=== PATIENT | female | born 1975 | race Caucasian/White ===

== ENCOUNTER 2024-03-14 12:36 | Inpatient (IN) | payer OTHER, SELFPAY ==
[2024-03-14] VITALS (8 sets, daily range): BP systolic 80–129; BP diastolic 43–91; PULSE 74–92; RESP 13–20; TEMP 35.5–37.1; O2SAT 94–100; BMI 20.6
--- NOTE | ~2024-03-14 | CT_ITS ---
EXAMINATION: CT CHEST, ABDOMEN AND PELVIS WITH CONTRAST CLINICAL INFORMATION: Question chest trauma. Abdominal pain. COMPARISON: None. TECHNIQUE: Contiguous axial thin section helical images of the chest, abdomen and pelvis were performed following the administration of oral contrast and 85 mL of intravenous Omnipaque 300. The data set was reformatted in the coronal and sagittal planes and reviewed on an independent workstation. This CT examination was performed using dose optimization techniques as appropriate, variously including the following: *Automated exposure control *Adjustment of mA and/or kV according to patient size (this includes techniques or standardized protocols for targeted exams where dose is matched to indication/reason for exam; i.e. extremities or head) *Use of iterative reconstruction technique DLP: 1346 mGy-cm. FINDINGS: LUNGS: Mild emphysematous changes. No focal airspace consolidation. No pulmonary nodule or mass. The central airways are patent. PLEURA: No pleural effusion or pneumothorax. No pleural mass or thickening. MEDIASTINUM: No cardiomegaly. No significant pericardial effusion. No thoracic aortic dilatation or dissection. The central pulmonary arteries are unremarkable. No significant mediastinal or hilar lymphadenopathy. CORONARY ARTERY CALCIFICATION: None present. CHEST WALL/AXILLA: No lymphadenopathy. LIVER, GALLBLADDER, AND BILIARY TREE: Normal size, shape, and attenuation. No focal hepatic lesion. No intra or extrahepatic biliary ductal dilatation. The gallbladder is unremarkable with no evidence of radiopaque gallstones, gallbladder wall thickening, or obvious pericholecystic inflammatory changes. PANCREAS: Unremarkable. SPLEEN: Unremarkable. ADRENAL GLANDS: Unremarkable. KIDNEYS AND URETERS: Normal size, shape, and attenuation. No hydronephrosis, hydroureter, or calculi. No perinephric stranding. BLADDER: Unremarkable. GASTROINTESTINAL TRACT: Moderate stool burden. No small or large bowel obstruction. Focal circumferential bowel wall thickening in left large and small bowel which may be due to underdistention or represent a mild focal enteritis. No pneumatosis or evidence of perforation. No additional bowel wall thickening or inflammatory change. The appendix is not seen, however, no rather quadrant inflammatory change. PERITONEAL CAVITY: No intra-abdominal free air or free fluid. No intra-abdominal mass or organized fluid collection/abscess formation. ABDOMINAL WALL: Small, fat-containing periumbilical hernia. LYMPH NODES: No significant lymphadenopathy. VASCULAR: Contrast opacifies the abdominal aorta and its branch vessels. No abdominal aortic dilatation or dissection. Scattered atherosclerotic calcifications. The IVC is unremarkable. PELVIC VISCERA: The uterus and adnexa are unremarkable. OSSEOUS STRUCTURES: No acute osseous abnormality. No lytic or blastic osseous lesion. CT/CT chest w IV con IMPRESSION: 1. Mild emphysematous changes. No focal airspace consolidation. No pulmonary nodule or mass. 2. Moderate stool burden. No small or large bowel obstruction. Focal circumferential bowel wall thickening in the left large and small bowel which may be due to underdistention or represent a mild focal enteritis. No pneumatosis or evidence of perforation. 3. No intra-abdominal mass, lymphadenopathy, or ascites. Electronically signed by: Mina Torres MD 03/14/2024 05:00 PM [facility]
--- NOTE | ~2024-03-14 | CT_ITS ---
EXAMINATION: CT CHEST, ABDOMEN AND PELVIS WITH CONTRAST CLINICAL INFORMATION: Question chest trauma. Abdominal pain. COMPARISON: None. TECHNIQUE: Contiguous axial thin section helical images of the chest, abdomen and pelvis were performed following the administration of oral contrast and 85 mL of intravenous Omnipaque 300. The data set was reformatted in the coronal and sagittal planes and reviewed on an independent workstation. This CT examination was performed using dose optimization techniques as appropriate, variously including the following: *Automated exposure control *Adjustment of mA and/or kV according to patient size (this includes techniques or standardized protocols for targeted exams where dose is matched to indication/reason for exam; i.e. extremities or head) *Use of iterative reconstruction technique DLP: 1346 mGy-cm. FINDINGS: LUNGS: Mild emphysematous changes. No focal airspace consolidation. No pulmonary nodule or mass. The central airways are patent. PLEURA: No pleural effusion or pneumothorax. No pleural mass or thickening. MEDIASTINUM: No cardiomegaly. No significant pericardial effusion. No thoracic aortic dilatation or dissection. The central pulmonary arteries are unremarkable. No significant mediastinal or hilar lymphadenopathy. CORONARY ARTERY CALCIFICATION: None present. CHEST WALL/AXILLA: No lymphadenopathy. LIVER, GALLBLADDER, AND BILIARY TREE: Normal size, shape, and attenuation. No focal hepatic lesion. No intra or extrahepatic biliary ductal dilatation. The gallbladder is unremarkable with no evidence of radiopaque gallstones, gallbladder wall thickening, or obvious pericholecystic inflammatory changes. PANCREAS: Unremarkable. SPLEEN: Unremarkable. ADRENAL GLANDS: Unremarkable. KIDNEYS AND URETERS: Normal size, shape, and attenuation. No hydronephrosis, hydroureter, or calculi. No perinephric stranding. BLADDER: Unremarkable. GASTROINTESTINAL TRACT: Moderate stool burden. No small or large bowel obstruction. Focal circumferential bowel wall thickening in left large and small bowel which may be due to underdistention or represent a mild focal enteritis. No pneumatosis or evidence of perforation. No additional bowel wall thickening or inflammatory change. The appendix is not seen, however, no rather quadrant inflammatory change. PERITONEAL CAVITY: No intra-abdominal free air or free fluid. No intra-abdominal mass or organized fluid collection/abscess formation. ABDOMINAL WALL: Small, fat-containing periumbilical hernia. LYMPH NODES: No significant lymphadenopathy. VASCULAR: Contrast opacifies the abdominal aorta and its branch vessels. No abdominal aortic dilatation or dissection. Scattered atherosclerotic calcifications. The IVC is unremarkable. PELVIC VISCERA: The uterus and adnexa are unremarkable. OSSEOUS STRUCTURES: No acute osseous abnormality. No lytic or blastic osseous lesion. CT/CT abdomen pelvis w IV con IMPRESSION: 1. Mild emphysematous changes. No focal airspace consolidation. No pulmonary nodule or mass. 2. Moderate stool burden. No small or large bowel obstruction. Focal circumferential bowel wall thickening in the left large and small bowel which may be due to underdistention or represent a mild focal enteritis. No pneumatosis or evidence of perforation. 3. No intra-abdominal mass, lymphadenopathy, or ascites. Electronically signed by: Mina Torres MD 03/14/2024 05:00 PM [facility] [place]
--- NOTE | ~2024-03-14 | CT_ITS ---
EXAMINATION: CT HEAD WITHOUT CONTRAST CLINICAL INFORMATION: Altered mental status. COMPARISON: None available. TECHNIQUE: Contiguous axial imaging was performed from the skull base to vertex without intravenous administration of contrast. This CT examination was performed using dose optimization techniques as appropriate, variously including the following: *Automated exposure control *Adjustment of mA and/or kV according to patient size (this includes techniques or standardized protocols for targeted exams where dose is matched to indication/reason for exam; i.e. extremities or head) *Use of iterative reconstruction technique DLP: 620.14 mGy-cm FINDINGS: No acute intracranial hemorrhage. No mass effect or midline shift. No parenchymal lesion. The morrow-white differentiation is maintained. No extra-axial fluid collection. The ventricles and sulci are unremarkable. The basal cisterns are patent. The calvarium is intact. The visualized paranasal sinuses and mastoid air cells are clear. CT/CT head/brain wo IV con IMPRESSION: No acute intracranial hemorrhage or mass effect. Electronically signed by: Mina Torres MD 03/14/2024 04:47 PM [facility] [place]
--- NOTE | ~2024-03-14 | XR_ITS ---
EXAMINATION: XR CHEST 2:50 PM CLINICAL INFORMATION: ams found in the snow COMPARISON: None available. TECHNIQUE: Portable frontal view of the chest was obtained. FINDINGS: No significant abnormality is noted involving the heart, lungs, mediastinum, bony thorax or soft tissues. XR/XR chest 1V IMPRESSION: Unremarkable examination. Electronically signed by: Bruce Hardin MD 03/14/2024 04:03 PM [facility] [place]
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
--- NOTE | 2024-03-14 12:53 | PC.NURSE ---
patient arrived to ED uncooperative with care. yelling, swearing, swinging at staff. security at bedside. patient then spit at another RN. would not let any care be provided to her. security took patient from room and walked her out of ED.
[2024-03-14] MEDS: diphenhydrAMINE HCL 50 MG/ML VIAL IM (13:10)
[2024-03-14] MEDS: Haloperidol Lactate 5 MG/ML VIAL 10 MG IM ×2 (13:10→13:57)
[2024-03-14] MEDS: LORazepam 2 MG/ML VIAL IM (13:10)
[2024-03-14] MEDS: 0.9 % Sodium Chloride 1,000 ML 999 ML IV ×3 (14:30→20:55)
[2024-03-14 14:53] LABS: MANUAL DIFF FLAG NO
[2024-03-14 15:00] LABS: Basophils Absolute Auto 0.1 X10*3/uL (0.0-0.2); Basophils Percent Auto 0.8 % (0-2); Eosinophils Absolute Auto 0.1 X10*3/uL (0.0-0.4); Eosinophils Percent Auto 1.4 % (0-4); Hematocrit 46.1 % (37.0-47.0); Hemoglobin 15.6 g/dl (12.0-16.0); Imm Gran Abs Auto 0.04 X10*3/uL (0.00-0.03); Imm Gran Pct Auto 0.6 % (0.0-0.4); Lymphocytes Absolute Auto 2.4 X10*3/uL (1.2-4.9); Lymphocytes Percent Auto 37.6 % (20-40); Mean Corpuscular HGB Conc 33.8 g/dl (31.0-35.0); Mean Corpuscular Hemoglobin 32.2 pg (27.0-33.0); Mean Corpuscular Volume 95.2 fL (80.0-98.0); Mean Platelet Volume 8.8 fL (9.4-12.3); Monocytes Absolute Auto 0.2 X10*3/uL (0.1-1.2); Monocytes Percent Auto 3.4 % (2-11); Neutrophils Absolute Auto 3.7 x10*3/uL (2.0-8.3); Neutrophils Percent Auto 56.2 % (45-73); Platelet Count 309 X10*3/uL (160-400); Red Blood Count 4.84 X10*6/uL (4.20-5.50); Red Cell Distribution Width 12.8 % (11.0-16.0); White Blood Count 6.5 X10*3/uL (4.8-10.8)
[2024-03-14 15:01] LABS: INTERNATIONAL NORM RATIO 0.9 (0.9-1.1)
[2024-03-14 15:10] LABS: Acetaminophen LAB < 3 mcg/mL (<30); Salicylate < 5.0 mg/dL (15-30)
[2024-03-14 15:13] LABS: Alanine Aminotransferase 41 U/L (0-31); Albumin Level 4.6 g/dL (3.5-5.0); Alkaline Phosphatase 69 U/L (39-117); Anion Gap 15 (12-20); Aspartate Amino Transferase 49 U/L (5-31); Bilirubin Total 0.4 mg/dL (0.0-1.0); Blood Urea Nitrogen 9 mg/dL (9-16); Calcium 9.3 mg/dL (8.4-10.2); Carbon Dioxide 22 mmol/L (22-29); Chloride 112 mmol/L (96-108); Creatinine Clr Calc Pharmacy 75.6; Estimated Glomerular Filt Rate > 60; Ethanol 263 mg/dL; Glucose Random 80 mg/dL (60-115); Magnesium 2.6 mg/dL (1.6-2.6); Potassium 4.7 mmol/L (3.3-5.1); Sodium 144 mmol/L (135-145); Total Protein 8.8 g/dL (6.5-8.0)
[2024-03-14] MEDS: iohexoL 350 MG/ML 100 ML INFUS..BTL 85 ML IV (15:19)
[2024-03-14 16:11] LABS: HCG Quantitative 6 mIU/mL
[2024-03-14 17:25] LABS: Appearance Urine Clear; Color Urine Yellow; Glucose Urine UA Negative (Negative); Leukocyte Esterase Urine Negative (Negative); Nitrite Urine Negative (Negative); Specific Gravity - Urine >= 1.030 (1.005-1.025); Urine Blood Negative (Negative); Urine Ketones Negative (Negative); Urine Protein Negative (Neg-Trace)
[2024-03-14 20:06] LABS: Amphetamine Screen Urine Not Detected (Not Detect); Barbiturates, Urine Not Detected (Not Detect); Benzodiazepines Screen Urine Not Detected (Not Detect); Buprenorphine Scr Not Detected (Not Detect); Cannabinoid Screen Urine POSITIVE (Not Detect); Cocaine Screen Urine POSITIVE (Not Detect); Fentanyl, urine Not Detected (Not Detect); Methadone Screen, Urine Not Detected (Not Detect); Opiate Screen Urine Not Detected (Not Detect); Oxycodone Screen Urine Not Detected (Not Detect); Phencyclidine Screen Urine Not Detected (Not Detect)
--- NOTE | 2024-03-14 20:13 | PHA.MEDREC ---
Addendum entered by Rianna Rosa [facility] 03/15/24 08:59: Levothyroxine and trazodone seemed a little high, went down to speak to patient today as patient seems to be more cooperative. Patient was able to confirm she is only on 175 mcg of the levothyroxine, she was told to stop the 100 mcg. Patient also states she is on 150 mg of trazodone daily...she does not take an extra 100 mg PRN. Addendum entered by Mando Eason [facility] 03/14/24 20:33: MED REC CHECKED BY [facility]. Based on claim history added incruse cora and proair prn but hasn't picked up since January Original Note: Pharmacy Consult ? Medication Reconciliation Pharmacy has completed the medication reconciliation. Patient is AMS and uncooperative with staff. No contacts on file. Utilized claims to confirm med list.
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
[2024-03-14 20:41] LABS: Thyroid Stimulating Hormone 24.43 uIU/mL (0.32-4.0)
[2024-03-14] MEDS: Thiamine HCL 100 MG in 0.9 % Sodium Chloride 100 ML 202 MG IV (20:55)
--- NOTE | 2024-03-14 21:07 | PC.NURSE ---
pt awake now axox4 speaking full clear sentences. ambulatory with steady gait to the bathroom and back to room. placed back on cardiac o2 and bp monitoring. warm blankets given. ivf and thiamine infusing. bp improved. call timmons within reach. pt denies si/hi, reports she drinks as much as i can everyday and +substance use. pt states she was trying to gather money to find transportation to hospital and unsure what happened. currently calm/cooperative.
[2024-03-14 21:35] LABS: Free T4 (Free Thyroxine) 0.67 ng/dL (0.71-1.85)
[2024-03-14] MEDS: Enoxaparin Sodium 40 MG/0.4 ML SYRINGE SUBCUT (22:27)
[2024-03-14] MEDS: Nicotine 21 MG PATCH.TD24 TRANSDERMA (22:27)
[2024-03-14] MEDS: Dextrose 5 % and 0.9 % NaCl 1,000 ML 125 ML IVCONT (22:28)
--- NOTE | 2024-03-15 04:19 | MHC.EDTECH ---
Addendum entered by Emilia Timmons 03/15/24 04:22: Update: Belongings located in [place] Original Note: No belongings at bedside or notes in chart as to where belongings are.
[2024-03-15 06:19] LABS: MANUAL DIFF FLAG NO
[2024-03-15 06:21] LABS: Basophils Percent Auto 0.5 % (0-2); Eosinophils Absolute Auto 0.2 X10*3/uL (0.0-0.4); Eosinophils Percent Auto 1.9 % (0-4); Hematocrit 36.5 % (37.0-47.0); Hemoglobin 12.4 g/dl (12.0-16.0); Imm Gran Abs Auto 0.04 X10*3/uL (0.00-0.03); Imm Gran Pct Auto 0.5 % (0.0-0.4); Lymphocytes Absolute Auto 2.7 X10*3/uL (1.2-4.9); Lymphocytes Percent Auto 33.5 % (20-40); Mean Corpuscular Hemoglobin 32.3 pg (27.0-33.0); Mean Corpuscular Volume 95.1 fL (80.0-98.0); Mean Platelet Volume 8.6 fL (9.4-12.3); Monocytes Absolute Auto 0.7 X10*3/uL (0.1-1.2); Monocytes Percent Auto 8.2 % (2-11); Neutrophils Absolute Auto 4.5 x10*3/uL (2.0-8.3); Neutrophils Percent Auto 55.4 % (45-73); Platelet Count 257 X10*3/uL (160-400); Red Blood Count 3.84 X10*6/uL (4.20-5.50); Red Cell Distribution Width 13.2 % (11.0-16.0); White Blood Count 8.1 X10*3/uL (4.8-10.8)
[2024-03-15 06:41] LABS: Alanine Aminotransferase 28 U/L (0-31); Albumin Level 3.4 g/dL (3.5-5.0); Alkaline Phosphatase 56 U/L (39-117); Anion Gap 10 (12-20); Aspartate Amino Transferase 42 U/L (5-31); Bilirubin Total 0.8 mg/dL (0.0-1.0); Blood Urea Nitrogen 9 mg/dL (9-16); Calcium 8.3 mg/dL (8.4-10.2); Carbon Dioxide 24 mmol/L (22-29); Chloride 117 mmol/L (96-108); Creatinine Clr Calc Pharmacy 75.6; Estimated Glomerular Filt Rate > 60; Glucose Random 127 mg/dL (60-115); Sodium 147 mmol/L (135-145)
[2024-03-15] MEDS: Dextrose 5 % and 0.9 % NaCl 1,000 ML 125 ML IVCONT ×3 (07:08→21:41)
[2024-03-15 08:23] VITALS: BP 155/112; PULSE 74; RESP 20; TEMP 37; O2SAT 99
--- NOTE | 2024-03-15 08:43 | HO.PM.IMPN ---
Subjective Subjective Date of Service: 03/15/24 Interval History: f/u altered mental status rhabdomylosis Physical Exam Vital Signs: Vital Signs: Last Vital Signs Temp 98.6 F 03/15/24 08:23 Pulse 74 03/15/24 08:23 Resp 20 03/15/24 08:23 BP 155/112 H 03/15/24 08:23 Pulse Ox 99 03/15/24 08:23 O2 Del Method Room Air 03/15/24 08:23 BMI result Body Mass Index 20.6 General: AO X 3, no acute distress Resp: CTA bilateral CVS: S1,S2,RRR GI: +BS, NT, no distention Skin: No rash Neuro: motor grossly intact Psych: appropriate affect Objective Data Active Medications Albuterol Sulfate (Albuterol Sulfate 90 Mcg 8 Gm Inhaler) 2 puff INHALE Q4H PRN PRN Reason: RESPIRATORY DISTRESS Baclofen (Baclofen 10 Mg Tablet) 10 mg PO TID [facility] Buspirone HCl (Buspirone Hcl 10 Mg Tablet) 20 mg PO TID [facility] Enoxaparin Sodium (Enoxaparin Sodium 40 Mg/0.4 Ml Syringe) 40 mg SUBCUT Q24H [facility] Last Admin: 03/14/24 22:27 Dose: 40 mg Documented By: FABIANO Gabapentin (Gabapentin 600 Mg Tablet) 900 mg PO TID [facility] Hydroxyzine HCl (Hydroxyzine Hcl 50 Mg Tablet) 50 mg PO QID [facility] Dextrose/Sodium Chloride (D5ns) 1,000 mls @ 125 mls/hr IVCONT .Q8H [facility] Last Admin: 03/15/24 07:08 Dose: 125 mls/hr Documented By: AZAR Thiamine HCl 100 mg/ Sodium (Chloride) 101 mls @ 202 mls/hr IV DAILY [facility] Levothyroxine Sodium (Levothyroxine Sodium 100 Mcg Tablet) 100 mcg PO DAILY [facility] Levothyroxine Sodium (Levothyroxine Sodium 175 Mcg Tablet) 175 mcg PO DAILY [facility] Lorazepam (Lorazepam 2 Mg/Ml Vial) 2 mg IVPUSH Q4H PRN PRN Reason: Alcohol Withdrawal Sodium Chloride (0.9 % Sodium Chloride Flush 3 Ml Syringe) 3 ml IVFLUSH QSHIFT [facility] Last Admin: 03/15/24 08:35 Dose: Not Given Documented By: KATT Non-Admin Reason: IV Running Trazodone HCl (Trazodone Hcl 100 Mg Tablet) 100 mg PO BEDTIME PRN PRN Reason: insomnia Trazodone HCl (Trazodone Hcl 50 Mg Tablet) 150 mg PO BEDTIME [facility] Labs 03/15/24 06:12 03/15/24 06:12 Labs: Laboratory Results - last 24 hr 03/14/24 03/14/24 03/14/24 14:46 17:18 18:52 MCV 95.2 MCH 32.2 MCHC 33.8 RDW 12.8 Plt Count 309 MPV 8.8 L Immature Gran % (Auto) 0.6 H Neut % (Auto) 56.2 Lymph % (Auto) 37.6 [place] % (Auto) 3.4 Eos % (Auto) 1.4 Baso % (Auto) 0.8 Lymph # (Auto) 2.4 [place] # (Auto) 0.2 Eos # (Auto) 0.1 Baso # (Auto) 0.1 Abs Immat Gran (auto) 0.04 H Absolute Neuts (auto) 3.7 Absolute Nucleated RBC 0.000 Nucleated RBC % (auto) 0.0 PT 11.0 INR 0.9 Anion Gap 15 Estim Creat Clear Calc 75.6 Estimated GFR > 60 Random Glucose 80 Calcium 9.3 Magnesium 2.6 Total Bilirubin 0.4 AST 49 H ALT 41 H Alkaline Phosphatase 69 Total Creatine Kinase 708 H 1168 H Total Protein 8.8 H Albumin 4.6 TSH 24.43 H Free T4 0.67 L Beta HCG, Quant 6 Urine Color Yellow Urine Appearance Clear Urine pH 6.0 Ur Specific [place] >= 1.030 H Urine Protein Negative Urine Glucose (UA) Negative Urine Ketones Negative Urine Blood Negative Urine Nitrite Negative Ur Leukocyte Esterase Negative Salicylates < 5.0 L Urine Opiates Screen Not Detected Ur Buprenorphine Scrn Not Detected Ur Oxycodone Screen Not Detected Urine Methadone Screen Not Detected Urine Fentanyl Screen Not Detected Acetaminophen < 3 Ur Barbiturates Screen Not Detected Ur Phencyclidine Scrn Not Detected Ur Amphetamines Screen Not Detected U Benzodiazepines Scrn Not Detected Urine Cocaine Screen POSITIVE H U Marijuana (THC) Screen POSITIVE H Ethyl Alcohol 263 03/14/24 03/15/24 18:52 06:12 MCV 95.1 MCH 32.3 MCHC 34.0 RDW 13.2 Plt Count 257 MPV 8.6 L Immature Gran % (Auto) 0.5 H Neut % (Auto) 55.4 Lymph % (Auto) 33.5 [place] % (Auto) 8.2 Eos % (Auto) 1.9 Baso % (Auto) 0.5 Lymph # (Auto) 2.7 [place] # (Auto) 0.7 Eos # (Auto) 0.2 Baso # (Auto) 0.0 Abs Immat Gran (auto) 0.04 H Absolute Neuts (auto) 4.5 Absolute Nucleated RBC 0.000 Nucleated RBC % (auto) 0.0 PT INR Anion Gap 10 L Estim Creat Clear Calc 75.6 Estimated GFR > 60 Random Glucose 127 H Calcium 8.3 L D Magnesium 2.0 Total Bilirubin 0.8 AST 42 H ALT 28 Alkaline Phosphatase 56 Total Creatine Kinase 1162 H Total Protein 6.0 L Albumin 3.4 L TSH Free T4 Beta HCG, Quant Urine Color Urine Appearance Urine pH Ur Specific [place] Urine Protein Urine Glucose (UA) Urine Ketones Urine Blood Urine Nitrite Ur Leukocyte Esterase Salicylates Urine Opiates Screen Ur Buprenorphine Scrn Ur Oxycodone Screen Urine Methadone Screen Urine Fentanyl Screen Acetaminophen Ur Barbiturates Screen Ur Phencyclidine Scrn Ur Amphetamines Screen U Benzodiazepines Scrn Urine Cocaine Screen U Marijuana (THC) Screen Ethyl Alcohol Assessment and Plan (1) Agitation: Status: Acute (2) Polysubstance abuse: Status: Acute (3) Alcohol intoxication: Status: Acute Plan 48-year-old woman was admitted with the following conditions: Rhabdomyolysis relatated to hypothermia -monitor CPK -IVF Acute encephalopathy, likely multifactorial due to alcohol intoxication and multiple RECRUITING ASSOCIATE depressant medications administered in the ED and cocaine use. -addiction med consult Hypotension and hypothermia, resolved, likely due to exposure to cold. resolved, BP is now high Hypernatremia--mild, monitor with ivf Overt hypothyroidism. A free T4 is low, ? non-compliance -resume home levothyroxine Elevated transaminases secondary to alcohol use. -Monitor Alcohol abuse. CIWA protocol and thiamine are in place. The patient will need to abstain from alcohol. Ativan is available as needed. Given the positive test, folic acid and multivitamins will be initiated when able. Cocaine and alcohol abuse. An addiction medicine consult has been ordered. Positive test. B-hcg of 6, this is equivocal, repeat level, if truly positive then supply and distribution manager consult DVT prophylaxis includes Lovenox. Code status: Full. Quality Stroke Does the patient have a stroke diagnosis?: No VTE Prior VTE?: No VTE Risk Level:: Medical - moderate - high VTE Device Contraindication: Treatment Not Indicated VTE Drug Contraindication: N/A - Med Ordered
[2024-03-15] MEDS: hydrOXYzine HCL 50 MG TABLET PO ×4 (09:20→23:16)
[2024-03-15] MEDS: Thiamine HCL 100 MG in 0.9 % Sodium Chloride 100 ML 202 MG IV (09:20)
[2024-03-15 09:31] LABS: Beta-Hydroxybutyrate 0.06 mmol/L (0.02-0.27)
[2024-03-15] MEDS: Levothyroxine Sodium 175 MCG TABLET PO (09:37)
--- NOTE | 2024-03-15 09:43 | PC.NURSE ---
assumed care of patient at 7am , patient is awake and alert, cooperative and polite. patient VsS, inpatient provider aware of bp. patient order changed from npo to regular diet, patient given breakfast tray. patient ambulatory to the bathroom. patient medicated per JUN, has D5NS 125ml/hr running. patient has elopement band on ankle. patient CIWA 3.
[2024-03-15 09:48] LABS: HCG Quantitative 5 mIU/mL
--- NOTE | 2024-03-15 11:12 | MHC.RECOVRN ---
Attempted to meet with pt in ED3 after receiving Addiction Medicine consult for cocaine and alcohol use. Pt laying in bed, asleep, wakes to voice and falls back asleep quickly. Not able to engage in interview at this time. Resources left at bedside. Will continue to follow.
[2024-03-15 13:16] VITALS: BP 155/106; PULSE 75; RESP 16; TEMP 36.7; O2SAT 100
--- NOTE | 2024-03-15 13:32 | MHC.RECOVRN ---
Attempted to meet with Sandra for DALE assessment, however once this nurse started asking questions relating to substance use, patient hesitated and stated I really don't feel like answering any of these questions. I drink as much as I want, whenever I want and that's it. I don't want to talk about it more.
--- NOTE | 2024-03-15 13:51 | PC.NURSE ---
patient sitting up eating lunch, ambulated to bathroom with steady gait.
[2024-03-15 16:09] VITALS: BP 141/94; PULSE 67; RESP 16; TEMP 36.3; O2SAT 96
[2024-03-15 20:00] VITALS: BP 157/95; PULSE 66; RESP 16; TEMP 36.2; O2SAT 99; BMI 20.2
[2024-03-15] MEDS: traZODone HCL 50 MG TABLET 150 MG PO (23:15)
[2024-03-15 23:32] VITALS: BP 147/101; PULSE 72; RESP 20; TEMP 36.4; O2SAT 99
[2024-03-16 00:39] VITALS: BP 132/92
[2024-03-16] MEDS: LORazepam 2 MG/ML VIAL IVPUSH ×2 (00:40→10:07)
[2024-03-16 04:00] VITALS: BP 138/90; PULSE 71; RESP 20; TEMP 36.1; O2SAT 100
[2024-03-16] MEDS: Dextrose 5 % and 0.9 % NaCl 1,000 ML 125 ML IVCONT ×2 (04:59→12:37)
[2024-03-16] MEDS: Levothyroxine Sodium 175 MCG TABLET PO (07:42)
[2024-03-16 08:00] VITALS: BP 124/79; PULSE 56; RESP 12; TEMP 36.7; O2SAT 98
[2024-03-16 08:25] LABS: Anion Gap 11 (12-20); Blood Urea Nitrogen 7 mg/dL (9-16); Calcium 8.3 mg/dL (8.4-10.2); Carbon Dioxide 21 mmol/L (22-29); Chloride 112 mmol/L (96-108); Creatinine Clr Calc Pharmacy 75.3; Estimated Glomerular Filt Rate > 60; Glucose Random 92 mg/dL (60-115); Potassium 3.8 mmol/L (3.3-5.1); Sodium 140 mmol/L (135-145)
[2024-03-16 08:29] LABS: HCG Quantitative 5 mIU/mL
--- NOTE | 2024-03-16 08:57 | MHC.CM.PN ---
PT, WHO WAS MINIMALLY ENGAGED, REPORTS SHE IS HOMELESS SHE DENIES BEING CONNECTED TO SERVICES HOWEVER STATES SHE IS ACTIVE WITH DR DOC WEEKS (PSYCHIATRIST) PATIENT ALSO DECLINED TO SPEAK TO RECOVERY TEAM, HOWEVER STATES SHE WANTS TO GO TO A PROGRAM CM WILL ASK RECOVERY TEAM TO DROP OFF A LIST OF PROGRAMS, PT STATES SHE WILL CALL WHEN ASKED ABOUT PRIMARY CARE, PT STATES HER ONLY DOCTOR IS DOC WEEKS [facility] TBD PROGRAM VS PRISON VS STREET PT WILL NEED ASSISTANCE WITH TRANSPORTATION
[2024-03-16] MEDS: 0.9 % Sodium Chloride Flush 3 ML SYRINGE IVFLUSH ×2 (09:04→22:08)
[2024-03-16] MEDS: hydrOXYzine HCL 50 MG TABLET PO (09:04)
[2024-03-16] MEDS: Thiamine HCL 100 MG in 0.9 % Sodium Chloride 100 ML 202 MG IV (09:07)
--- NOTE | 2024-03-16 11:57 | HO.PM.IMPN ---
Subjective Subjective Date of Service: 03/16/24 Interval History: f/u altered mental status rhabdomylosis, no confusion, repeat hcg level is unchanged Physical Exam Vital Signs: Vital Signs: Last Vital Signs Temp 98.1 F 03/16/24 08:00 Pulse 56 03/16/24 08:00 Resp 12 03/16/24 08:00 BP 124/79 03/16/24 08:00 Pulse Ox 98 03/16/24 08:00 O2 Del Method Room Air 03/16/24 08:00 BMI result Body Mass Index 20.2 General: AO X 3, no acute distress Resp: CTA bilateral CVS: S1,S2,RRR GI: +BS, NT, no distention Skin: No rash Neuro: motor grossly intact Psych: appropriate affect Objective Data Active Medications Albuterol Sulfate (Albuterol Sulfate 90 Mcg 8 Gm Inhaler) 2 puff INHALE Q4H PRN PRN Reason: RESPIRATORY DISTRESS Baclofen (Baclofen 10 Mg Tablet) 10 mg PO TID [facility] Last Admin: 03/15/24 09:26 Dose: Not Given Documented By: KATT Non-Admin Reason: Physician Held Med Buspirone HCl (Buspirone Hcl 10 Mg Tablet) 20 mg PO TID [facility] Last Admin: 03/15/24 09:26 Dose: Not Given Documented By: KATT Non-Admin Reason: Physician Held Med Enoxaparin Sodium (Enoxaparin Sodium 40 Mg/0.4 Ml Syringe) 40 mg SUBCUT Q24H [facility] Last Admin: 03/15/24 23:00 Dose: Not Given Documented By: WENDY Non-Admin Reason: Patient Refused Gabapentin (Gabapentin 600 Mg Tablet) 900 mg PO TID [facility] Last Admin: 03/15/24 09:26 Dose: Not Given Documented By: KATT Non-Admin Reason: Physician Held Med Hydroxyzine HCl (Hydroxyzine Hcl 50 Mg Tablet) 50 mg PO QID [facility] Last Admin: 03/16/24 09:04 Dose: 50 mg Documented By: SILVIO Dextrose/Sodium Chloride (D5ns) 1,000 mls @ 125 mls/hr IVCONT .Q8H [facility] Last Admin: 03/16/24 04:59 Dose: 125 mls/hr Documented By: WENDY Thiamine HCl 100 mg/ Sodium (Chloride) 101 mls @ 202 mls/hr IV DAILY [facility] Last Infusion: 03/16/24 10:15 Dose: Infused Documented By: SILVIO Levothyroxine Sodium (Levothyroxine Sodium 175 Mcg Tablet) 175 mcg PO DAILY@0600 [facility] Last Admin: 03/16/24 07:42 Dose: 175 mcg Documented By: WENDY Lorazepam (Lorazepam 2 Mg/Ml Vial) 2 mg IVPUSH Q4H PRN PRN Reason: Alcohol Withdrawal Last Admin: 03/16/24 10:07 Dose: 2 mg Documented By: SILVIO Sodium Chloride (0.9 % Sodium Chloride Flush 3 Ml Syringe) 3 ml IVFLUSH QSHIFT [facility] Last Admin: 03/16/24 09:04 Dose: 3 ml Documented By: SILVIO Trazodone HCl (Trazodone Hcl 50 Mg Tablet) 150 mg PO BEDTIME [facility] Last Admin: 03/15/24 23:15 Dose: 150 mg Documented By: WENDY Labs 03/15/24 06:12 03/16/24 07:37 Labs: Laboratory Results - last 24 hr 03/16/24 07:37 Anion Gap 11 L Estim Creat Clear Calc 75.3 Estimated GFR > 60 Random Glucose 92 Calcium 8.3 L Beta HCG, Quant 5 Assessment and Plan (1) Agitation: Status: Acute (2) Polysubstance abuse: Status: Acute (3) Alcohol intoxication: Status: Acute Plan 48-year-old woman was admitted with the following conditions: Rhabdomyolysis relatated to hypothermia -monitor CPK -IVF Acute encephalopathy, likely multifactorial due to alcohol intoxication and multiple INDUSTRIAL MAINTENANCE MECHANIC depressant medications administered in the ED and cocaine use. -addiction med consult. Encephalopathy resolved Hypotension and hypothermia, resolved, likely due to exposure to cold. resolved, BP is now normal Hypernatremia--mild, resolved Overt hypothyroidism. A free T4 is low, ? non-compliance -continue home levothyroxine Elevated transaminases secondary to alcohol use. -Monitor Alcohol abuse. CIWA protocol and thiamine are in place. The patient will need to abstain from alcohol. Ativan is available as needed. Given the positive test, folic acid and multivitamins will be initiated when able. Cocaine and alcohol abuse. An addiction medicine consult has been ordered. Positive test. B-hcg of 6, repeat 5 x 2, this is equivocal. Check LH and FSH, hold US and discuss with ONCOLOGY PATIENT NAVIGATOR if rising DVT prophylaxis includes Lovenox. Code status: Full. Quality Stroke Does the patient have a stroke diagnosis?: No VTE Prior VTE?: No VTE Risk Level:: Medical - moderate - high VTE Device Contraindication: Treatment Not Indicated VTE Drug Contraindication: N/A - Med Ordered
[2024-03-16 12:00] VITALS: BP 124/84; PULSE 76; RESP 16; TEMP 36.4; O2SAT 96
[2024-03-16 14:04] LABS: MANUAL DIFF FLAG NO
[2024-03-16 14:07] LABS: Basophils Percent Auto 0.3 % (0-2); Eosinophils Absolute Auto 0.1 X10*3/uL (0.0-0.4); Eosinophils Percent Auto 1.3 % (0-4); Hematocrit 36.5 % (37.0-47.0); Hemoglobin 12.4 g/dl (12.0-16.0); Imm Gran Abs Auto 0.01 X10*3/uL (0.00-0.03); Imm Gran Pct Auto 0.2 % (0.0-0.4); Lymphocytes Absolute Auto 1.5 X10*3/uL (1.2-4.9); Lymphocytes Percent Auto 23.3 % (20-40); Mean Corpuscular Hemoglobin 32.5 pg (27.0-33.0); Mean Corpuscular Volume 95.5 fL (80.0-98.0); Mean Platelet Volume 9.4 fL (9.4-12.3); Monocytes Absolute Auto 0.5 X10*3/uL (0.1-1.2); Monocytes Percent Auto 7.7 % (2-11); Neutrophils Absolute Auto 4.3 x10*3/uL (2.0-8.3); Neutrophils Percent Auto 67.2 % (45-73); Platelet Count 248 X10*3/uL (160-400); Red Blood Count 3.82 X10*6/uL (4.20-5.50); White Blood Count 6.4 X10*3/uL (4.8-10.8)
[2024-03-16 15:32] VITALS: BP 143/91; PULSE 76; RESP 12; TEMP 36.8; O2SAT 99
[2024-03-16 19:15] VITALS: BP 134/87; PULSE 76; RESP 16; TEMP 37; O2SAT 97
[2024-03-17] VITALS: BP 134/95; PULSE 64; RESP 16; TEMP 36.4; O2SAT 100
[2024-03-17 03:23] VITALS: BP 146/93; PULSE 50; RESP 16; TEMP 36.4; O2SAT 100
[2024-03-17] MEDS: Levothyroxine Sodium 175 MCG TABLET PO (05:26)
[2024-03-17] MEDS: LORazepam 2 MG/ML VIAL 1 MG IVPUSH (05:29)
[2024-03-17 07:14] VITALS: BP 116/76; PULSE 78; RESP 20; TEMP 36.8; O2SAT 100
[2024-03-17] MEDS: Thiamine HCL 100 MG in 0.9 % Sodium Chloride 100 ML 202 MG IV (08:18)
[2024-03-17] MEDS: 0.9 % Sodium Chloride Flush 3 ML SYRINGE IVFLUSH (08:18)
[2024-03-17 09:03] LABS: Anion Gap 7 (12-20); Blood Urea Nitrogen 6 mg/dL (9-16); Calcium 8.5 mg/dL (8.4-10.2); Carbon Dioxide 28 mmol/L (22-29); Chloride 109 mmol/L (96-108); Creatinine Clr Calc Pharmacy 78.5; Estimated Glomerular Filt Rate > 60; Glucose Random 77 mg/dL (60-115); Potassium 4.1 mmol/L (3.3-5.1); Sodium 140 mmol/L (135-145)
[2024-03-17 09:05] LABS: HCG Quantitative 6 mIU/mL
[2024-03-17 11:05] VITALS: BP 135/86; PULSE 85; RESP 18; TEMP 36.9; O2SAT 98
--- NOTE | 2024-03-17 11:40 | PM.DS ---
DS: Providers Provider Date of Service: 03/17/24 Date of admission: 03/14/24 20:15 Date of discharge: 03/17/24 Primary care physician: Unknown Physician Consults: 03/14/24 21:00 Addiction Medicine Routine Consulting Provider: Addiction Covering Reason for consultation: Cocaine and alcohol abuse DS: Diagnosis Discharge Diagnosis (1) Agitation: Status: Resolved (2) Polysubstance abuse: Status: Acute (3) Alcohol intoxication: Status: Resolved DS: Summary Hospital Course Hospital Course: admission hpi Chief Complaint: Altered mental status Patricia Jimenes is a 48 years old woman with past medical significant for hypothyroidism was brought to the emergency department via EMS after she was [place] and altered. According to ED notes the patient was combative and attacking the staff members. HPI could not get obtain directly from the patient as she seems to be intoxicated. In the ED, she was initially found to have hypotension and hypothermia. Vital signs are stable. Blood workup was remarkable for elevated total CK (last 1162) and elevated transaminases. There are no electrolyte imbalances and renal function is normal. TSH markedly elevated at 24.43. test is 6. Head, abdomen, pelvis and chest CT scans are unremarkable. CXR is negative. ED tx: Haldol 20 mg IM, Ativan 2 mg IM, Benadryl 50 mg IM, NS 2 L bolus, Zofran 4 mg IV Hospital course: The patient presented with altered mental status, intoxicated with alcohol, and a urine drug screen positive for cocaine and marijuana. She was extremely agitated in the ED and required chemical restraint with Ativan, Haldol, and Benadryl. Lab work showed an elevated CPK, initially 708, then 1168, and now 715, raising concern for early rhabdomyolysis. B-HCG was 6, raising suspicion for , although the patient denied the possibility. Serial B-HCG levels over four days were 6, 5, 5, and 6. LH and FSH levels have been sent to confirm that this is not a . These findings were discussed with DOPE WEIGH OPERATOR, who advised follow-up in the outpatient DOPE WEIGH OPERATOR office. At this time, the patient's altered mental status and encephalopathy have resolved. She was seen by the recovery team and advised to abstain from substance use. She was urged to follow up with DOPE WEIGH OPERATOR and to take her medications as prescribed, particularly levothyroxine for hypothyroidism. She admitted to not taking it regularly, which correlates with her elevated TSH level of 24. Time Attestation Discharge Coordination Time (in mins): 40 Quality: Safe Use of Opioids Does Pt have an Active Cancer Diagnosis on the Problem List?: No Quality: Stroke Does the patient have a stroke diagnosis?: No Physical Exam Vital Signs: Vital Signs: Last Vital Signs Temp 98.4 F 03/17/24 11:05 Pulse 85 03/17/24 11:05 Resp 18 03/17/24 11:05 BP 135/86 03/17/24 11:05 Pulse Ox 98 03/17/24 11:05 O2 Del Method Room Air 03/17/24 11:05 BMI result Body Mass Index 20.2 General: AO X 3, no acute distress Resp: CTA bilateral CVS: S1,S2,RRR GI: +BS, NT, no distention Skin: No rash Neuro: motor grossly intact Psych: appropriate affect DS: Data Data Completed and Pending Labs on day of discharge: Laboratory Results - last 24 hr 03/16/24 03/16/24 03/17/24 12:25 12:35 07:40 WBC 6.4 RBC 3.82 L Hgb 12.4 Hct 36.5 L MCV 95.5 MCH 32.5 MCHC 34.0 RDW 13.0 Plt Count 248 MPV 9.4 Immature Gran % (Auto) 0.2 Neut % (Auto) 67.2 Lymph % (Auto) 23.3 Mora % (Auto) 7.7 Eos % (Auto) 1.3 Baso % (Auto) 0.3 Lymph # (Auto) 1.5 Mora # (Auto) 0.5 Eos # (Auto) 0.1 Baso # (Auto) 0.0 Abs Immat Gran (auto) 0.01 Absolute Neuts (auto) 4.3 Absolute Nucleated RBC 0.000 Nucleated RBC % (auto) 0.0 Hold Purple Top SEE NOTE Sodium 140 Potassium 4.1 Chloride 109 H Carbon Dioxide 28 Anion Gap 7 L BUN 6 L Creatinine 0.70 Estim Creat Clear Calc 78.5 Estimated GFR > 60 Random Glucose 77 Calcium 8.5 Total Creatine Kinase 715 H Beta HCG, Quant 6 Discharge Plan Discharge Anticipated Discharge Date/Time: 03/17/24 11:39 Patient Disposition: Home, Self-Care Discharge Diagnosis: alcohol intoxications, rhabdomyolysis, positive Referrals: Physician,Unknown J [Primary Care Provider] - 1 Week Felipe Gutierrez MD [Physician] - 1 Week (call for appointment to review labs) Discharge Medications: Continued levothyroxine 175 mcg tablet 175 mcg PO DAILY Rx Instructions: TOTAL DOSE 175MG gabapentin 600 mg tablet 900 mg PO TID hydroxyzine pamoate 50 mg capsule 50 mg PO QID trazodone 150 mg tablet 150 mg PO BEDTIME baclofen 10 mg tablet 10 mg PO TID buspirone 10 mg tablet 20 mg PO TID albuterol sulfate [Ventolin HFA] 90 mcg/actuation HFA aerosol inhaler 2 puff inhalation Q4H PRN (Reason: Respiratory Distress) Discharge Orders: Discharge Order (Routine); Ordered 03/17/24 Ordered By: Hasmukh Weber Diet: Advance to usual diet Activity on Discharge: As tolerated Stand Alone Forms: Patient Portal Discharge page Print Language: Togolese Care Plan Goals: recovery from alcohol intoxiciation, rhabdomylosis, substance use disorder Health Concerns: substance use diosorder alcohol use disorder Plan of Treatment: resume your medication as usual Follow up with DOPE WEIGH OPERATOR (Dr. Gutierrez's) regarding the positive test, though it remains uncertain if this is a true positive. Confirmatory tests are pending. Assessment: see above Discharge Date/Time: 03/17/24 14:18
--- NOTE | 2024-03-17 13:04 | MHC.CM.PN ---
Pt is being medically cleared for discharge today, self-care to the streets. This CM called [facility], the living room, the [facility], [facility], and [facility] to inquire about an available fci bed. No available fci beds at this time. This CM met with pt to discuss her discharge and she stated you don't need to find me a place to go, I will find somewhere to go once I leave.
--- NOTE | 2024-03-17 15:52 | P.CDIM_ITS ---
PROVIDER RESPONSE TEXT: To clarify, the appropriate diagnosis supported by the clinical indicators: Metabolic QUERY TEXT: PHYSICIAN'S DOCUMENTATION REQUEST Date of Query: 03/17/2024 08:14 AM EST Patient Name: Patricia Jimenes Admit Date: 03/15/2024 Dear Hasmukh Weber MD, A review of the medical record indicates additional documentation may be needed. Please review below and update the documentation accordingly. Clinical Indicators: Progress notes within the written Plan: Acute encephalopathy likely multifactorial. Alcohol intoxication, multiple TEACHING AIDE depressant meds given in Ed and cocaine use. Altered mental status. Based on the above, please further specify, in the Progress Notes, the known or suspected type of the documented encephalopathy: Metabolic Toxic Toxic metabolic Alcoholic Other (explain) Clinically unable to determine (explain) Thank you, Trang Richter, CCS, CDIS Use of terms such as suspected, likely, concern for, or probable (associated with a specific diagnosi s that is being evaluated, monitored, or treated as if it exists) are acceptable and can be coded in the inpatient se tting, when documented at the time of discharge. Please use your independent medical judgment in providing your response. THIS QUERY IS PART OF THE PERMANENT MEDICAL RECORD
[2024-03-18 12:59] LABS: Follicle Stimulating Hormone 95.6 mIU/mL; Lutenizing Hormone 43.8 mIU/mL
== END 2024-03-17 14:18 | disposition home or self-care (01) | DRG 351 ==
LOC: HO.ED 19:32 → HO.EDOVER 20:28 → HO.IMC 03-15 17:51
PROVIDERS: Physician Assistant; Admitting Provider Internal Medicine; Emergency Provider Emergency Medicine Emergency Medical Services; Visit Provider Internal Medicine
DX: M62.82 Rhabdomyolysis (principal); G93.41 Metabolic encephalopathy; T68.XXXA Hypothermia, initial encounter; E87.0 Hyperosmolality and hypernatremia; F17.210 Nicotine dependence, cigarettes, uncomplicated; Z91.148 Patient's other noncompliance with medication regimen for other reason; F19.10 Other psychoactive substance abuse, uncomplicated; X31.XXXA Exposure to excessive natural cold, initial encounter; Z71.6 Tobacco abuse counseling; Y90.8 Blood alcohol level of 240 mg/100 ml or more; E03.9 Hypothyroidism, unspecified; F14.10 Cocaine abuse, uncomplicated; F10.229 Alcohol dependence with intoxication, unspecified; Z79.890 Hormone replacement therapy; Z79.899 Other long term (current) drug therapy
CPT/HCPCS: 36415; 70450; 71045; 71260; 74177; 80048; 80053; 80143; 80179; 80307; 81003; 82010; 82550; 83001; 83002; 83735; 84439; 84443; 84702; 85025; 85610; 99285; J1200; J1630; J1650; J2060; J3411; Q9967; S9485

== ENCOUNTER → 2024-03-14 20:15 | Outpatient (BNV) | payer OTHER, SELFPAY | PROVIDERS: Admitting Provider Internal Medicine; Emergency Provider Emergency Medicine Emergency Medical Services; Visit Provider Internal Medicine | DX: R45.1 Restlessness and agitation (principal); F19.10 Other psychoactive substance abuse, uncomplicated; F10.929 Alcohol use, unspecified with intoxication, unspecified | CPT/HCPCS: 99223; 99232 ==

== ENCOUNTER 2025-03-01 12:47 | Emergency (ER) | payer MEDICAID, SELFPAY ==
--- NOTE | 2025-03-01 14:21 | ED_ITS ---
HPI - General Adult General Chief complaint: Skin/Abscess/Foreign Body Stated complaint: infections on multiple sites Time Seen by Provider: 03/01/25 15:47 History of Present Illness ED Provider: Hema Licea MD HPI narrative: Date & Time: 2025-03-01 Patient Name: Patricia : MRN: Author / Clinician: Hema Licea MD (Emergency Medicine) Chief Complaint Painful, red lesion on the left hand present for approximately eight months. History of Present Illness 28-year-old female (Patricia) presents with a red, inflamed area on the dorsal aspect of her left hand that began about eight months ago. She reports intermittent manipulation/picking of the lesion, with recent expression of a small amount of pus. The area is painful and feels hot to her. She denies any inciting injury or injections to the area. No associated fever, chills, weight loss, night sweats, sore throat, cough, chest pain, or proximal streaking erythema up the arm. Similar smaller lesions are noted on her legs. She reports visiting a friend's house who injects needles, but denies injecting herself. Seen at an urgent care clinic earlier today where IV antibiotics were recommended; she was referred to the ED by urgent care (with assistance from her mother). She states prior blood work was obtained at urgent care; results pending review. Review of Systems - General: Denies fever, chills, weight loss, night sweats. - Skin: Painful red lesion on left hand; similar lesions on legs. - HEENT: Denies sore throat. - Respiratory: Denies cough. - Cardiovascular: Denies chest pain. - Extremities: Denies spreading redness up arm. Past Medical History Presumed COPD. Status post thyroidectomy ? currently without thyroid hormone replacement (has not refilled levothyroxine for several months; previous doses 175 mcg then 100 mcg). Medications None currently taken (levothyroxine previously, now lapsed). = Physical Exam: - Skin/Extremity: Dorsal left hand with a single erythematous, indurated lesion; patient reports tenderness to touch. No visible streaking proximally. Patient able to fully open and close left hand. Ring removed for comfort. Comparable photographs obtained for record. Emergency Department Course Photographs of the hand lesion obtained. Prior urgent-care laboratory studies requested for review (results not yet available). Discussed need for antibiotic therapy; plan for intravenous antibiotics. Assessment & Plan Diagnosis: Left hand skin infection / infected skin lesion. Plan: - Initiate intravenous antibiotics (per ED protocol). - Review outside laboratory results when available. - Monitor clinical response while in ED. Disposition Related Data Home Medications ?Medication ?Instructions ?Recorded ?Confirmed albuterol sulfate 90 mcg/actuation 2 puff inhalation Q 4H PRN 03/14/24 03/14/24 aerosol inhaler (Ventolin HFA) Respiratory Distress baclofen 10 mg tablet 10 mg PO TID 03/14/24 buspirone 10 mg tablet 20 mg PO TID anxiety 4 03/14/24 gabapentin 600 mg tablet 900 mg PO TID 03/14/2403/14 hydroxyzine pamoate 50 mg capsule 50 mg PO QID 4 03/14/24 levothyroxine 175 mcg tablet 175 mcg PO DAILY 03/14/24 03/14/24 trazodone 150 mg tablet 150 mg PO BEDTIME 03/14/24 1 05/15/23 Previous Rx's ?Medication ?Instructions ?Recorded doxycycline hyclate 100 mg tablet 100 mg PO BID 7 days #14 tabs 03/01/25 levothyroxine 150 mcg capsule 150 mcg PO DAILY 30 days #30 caps 03/01/25 Allergies Allergy/AdvReac Type Severity Reaction Status Date / Time Sulfa (Sulfonamide Allergy Rash Verified 03/01/25 14:24 Antibiotics) [facility] Social History Social History Housing: Homeless Patient Tobacco Use Status: Current everyday Tobacco user Tobacco use type: Cigarette Cigarette Packs Per Day: 1 Cigarettes Per Day: 20.0 e-Cigarette/Vaping Use: Currently Using Substance Use Type: Crack/Cocaine and Marijuana Advance Directives: No Advance Directives Information Provided: No service: No Physical Exam ED Exam Exam: GENERAL: Well appearing. No apparent distress. Alert. HEAD/NECK: No visual trauma. EYES: Normal to inspection. No conjunctival erythema. No discharge. ENMT: Hearing grossly normal. External nose normal. RESPIRATORY: Respiratory effort normal. CARDIOVASCULAR: Additional details (Grossly well perfused). SKIN: Dorsal left hand erythematous with ulceration see photo NEUROLOGICAL: Alert. Moving all extremities x4. Additional details (No gross motor deficits. Normal tone. ). PSYCHIATRIC: Alert. Appearance appropriate for situation. Vital Signs: Vital Signs - 24 hr 03/01/25 14:22 03/01/25 16:20 03/01/25 16:43 Temperature 97.8 F 98.4 F 97.9 F Pulse Rate 76 81 75 Respiratory Rate 16 16 16 Blood Pressure 113/84 124/82 116/85 Pulse Oximetry 96 95 98 Oxygen Delivery Method Room Air Room Air Room Air BMI result Body Mass Index 21.0 Course Course Course Narrative: Rapid medical examination performed in triage by Daniela White PA-C: Patient is a 49 year old assigned female at presenting to the emergency department with several areas of skin excoriations that appear to be infected. Detailed physical exam and review of systems are deferred to the facer operator. Labs ordered. Patient placed back in the waiting room pending room availability and results. Medications Administered Discontinued Medications Generic Name Dose Route Start Last Admin Trade Name Freq PRN Reason Stop Dose Admin Doxycycline Monohydrate 100 mg 03/01/25 16:23 03/01/25 16:35 Doxycycline Monohydrate 100 Mg Capsule PO 03/01/25 16:24 100 mg ONCE ONE Administration Levothyroxine Sodium 150 mcg 03/01/25 16:23 03/01/25 16:35 Levothyroxine Sodium 150 Mcg Tablet PO 03/01/25 16:24 150 mcg ONCE ONE Administration Medical Decision Making Medical Decision Making [facility] Narrative: Isolated mild swelling and erythema of the dorsal left hand no exam findings suggestive of joint involvement or deep space hand infection. No leukocytosis or constitutional symptoms or suggestion that it is spreading proximally. Needs MRSA coverage no drainable fluctuance I examined Hypothyroid due to surgical thyroidectomy. Nonadherent with medication we will re-initiate her meds and referred to endocrinology Lab Data 03/01/25 14:41 03/01/25 14:41 Labs: Lab Results 03/01/25 Range/Units 14:41 WBC 6.3 (4.8-10.8) X10*3/uL RBC 4.48 (4.20-5.50) X10*6/uL Hgb 14.6 (12.0-16.0) g/dl Hct 43.2 (37.0-47.0) % MCV 96.4 (80.0-98.0) fL MCH 32.6 (27.0-33.0) pg MCHC 33.8 (31.0-35.0) g/dl RDW 13.7 (11.0-16.0) % Plt Count 330 D (160-400) X10*3/uL MPV 9.4 (9.4-12.3) fL Immature Gran % (Auto) 0.3 (0.0-0.4) % Neut % (Auto) 55.8 (45-73) % Lymph % (Auto) 34.3 (20-40) % Rankin % (Auto) 6.4 (2-11) % Eos % (Auto) 2.6 (0-4) % Baso % (Auto) 0.6 (0-2) % Lymph # (Auto) 2.2 (1.2-4.9) X10*3/uL Rankin # (Auto) 0.4 (0.1-1.2) X10*3/uL Eos # (Auto) 0.2 (0.0-0.4) X10*3/uL Baso # (Auto) 0.0 (0.0-0.2) X10*3/uL Abs Immat Gran (auto) 0.02 (0.00-0.03) X10*3/uL Absolute Neuts (auto) 3.5 (2.0-8.3) x10*3/uL Absolute Nucleated RBC 0.000 (0.0-0.012) X10*3/uL Nucleated RBC % (auto) 0.0 (0.0-0.2) /100WBC ESR 10 (0-20) MM/HR Sodium 140 (135-145) mmol/L Potassium 4.3 (3.3-5.1) mmol/L Chloride 105 (96-108) mmol/L Carbon Dioxide 28 (22-29) mmol/L Anion Gap 11 L (12-20) BUN 14 (9-16) mg/dL Creatinine 1.00 (0.5-1.4) mg/dL Estim Creat Clear Calc 54.4 Estimated GFR 59 Random Glucose 88 (60-115) mg/dL Calcium 8.9 (8.4-10.2) mg/dL Total Bilirubin 0.8 (0.0-1.0) mg/dL AST 118 H (5-31) U/L ALT 94 H (0-31) U/L Alkaline Phosphatase 97 (39-117) U/L C-Reactive Protein 0.73 H (< or = 0.50) mg/dL Total Protein 6.9 (6.5-8.0) g/dL Albumin 4.0 (3.5-5.0) g/dL TSH 68.21 H (0.32-4.0) uIU/mL Free T4 < 0.42 L (0.71-1.85) ng/dL Hold Red Top See Note Discharge Plan Discharge Clinical Impression: Cellulitis, Hypothyroid Patient Disposition: Home, Self-Care Instructions: Cellulitis (ED), Hypothyroidism (ED) Additional Instructions: We re-initiated your medication and started new back on levothyroxine Prescriptions: New doxycycline hyclate 100 mg tablet 100 mg PO BID 7 Days Qty: 14 0RF levothyroxine 150 mcg capsule 150 mcg PO DAILY 30 Days Qty: 30 0RF Rx Instructions: I recommend for the 1st week starting with 1 tablet every other day and then continue daily No Action levothyroxine 175 mcg tablet 175 mcg PO DAILY Rx Instructions: TOTAL DOSE 175MG gabapentin 600 mg tablet 900 mg PO TID hydroxyzine pamoate 50 mg capsule 50 mg PO QID trazodone 150 mg tablet 150 mg PO BEDTIME baclofen 10 mg tablet 10 mg PO TID buspirone 10 mg tablet 20 mg PO TID albuterol sulfate [Ventolin HFA] 90 mcg/actuation HFA aerosol inhaler 2 puff inhalation Q4H PRN (Reason: Respiratory Distress) Referrals: [facility] Endocrinology [Provider Group, Endocrinology] Interventions: ED Discharge Assessment Last Done: 03/01/25 16:43 Discharge Date/Time: 03/01/25 16:43 Print Language: Kazakh
[2025-03-01 14:22] VITALS: BP 113/84; PULSE 76; RESP 16; TEMP 36.6; O2SAT 96; BMI 21.0
[2025-03-01 14:47] LABS: MANUAL DIFF FLAG NO
[2025-03-01 14:55] LABS: Hematocrit 43.2 % (37.0-47.0); Hemoglobin 14.6 g/dl (12.0-16.0); Imm Gran Abs Auto 0.02 X10*3/uL (0.00-0.03); Imm Gran Pct Auto 0.3 % (0.0-0.4); Lymphocytes Absolute Auto 2.2 X10*3/uL (1.2-4.9); Mean Corpuscular HGB Conc 33.8 g/dl (31.0-35.0); Mean Corpuscular Hemoglobin 32.6 pg (27.0-33.0); Mean Corpuscular Volume 96.4 fL (80.0-98.0); NRBC Abs Auto 0.000 X10*3/uL (0.0-0.012); NRBC Pct Auto 0.0 /100WBC (0.0-0.2); Platelet Count 330 X10*3/uL (160-400); Red Blood Count 4.48 X10*6/uL (4.20-5.50); White Blood Count 6.3 X10*3/uL (4.8-10.8)
[2025-03-01 15:07] LABS: Alanine Aminotransferase 94 U/L (0-31); Albumin Level 4.0 g/dL (3.5-5.0); Alkaline Phosphatase 97 U/L (39-117); Anion Gap 11 (12-20); Aspartate Amino Transferase 118 U/L (5-31); Blood Urea Nitrogen 14 mg/dL (9-16); Calcium 8.9 mg/dL (8.4-10.2); Carbon Dioxide 28 mmol/L (22-29); Chloride 105 mmol/L (96-108); Creatinine Clr Calc Pharmacy 54.4; Estimated Glomerular Filt Rate 59; Potassium 4.3 mmol/L (3.3-5.1); Sodium 140 mmol/L (135-145); Total Protein 6.9 g/dL (6.5-8.0)
[2025-03-01 15:37] LABS: Erythrocyte Sedimentation Rate 10 MM/HR (0-20)
[2025-03-01 16:02] LABS: Free T4 (Free Thyroxine) < 0.42 ng/dL (0.71-1.85)
--- OUTSIDE RECORDS SUMMARY | 2025-03-01 16:15 | XMS_ITS | Encounter Summary ---
Author Organization [facility] Address [address] [place] [address] Care Team Providers Care Alterations Tailor Name Role Phone Lay Kennedy DO, Diana Primary Care Provider + Reason for Visit * Reason Onset Date Comments General Medical Concern 02/27/2025 Encounter Details Date Type Department Care Team (Late st Contact Info) Description 02/27/[address] Family Practice Department [address] [place] [address] Cary Chun DO [address] [place] [address] General Medical Concern Social History Tobacco Use Types Packs/Day Years Used Date Smoking Tobacco: Every Day Cigarettes 1 36.9 Started: 1988 Passive Smoke Exposure: Past Smokeless Tobacco: Never Comments:: Alcohol Use Standard Drinks/Week Comments Yes 21 (1 standard drink = 0.6 oz pu re alcohol) 10 nips/daily [facility] Utilities Answer Date Recorded In the past 12 months has th e electric, gas, oil, or water company threatened to shut off services in your home? No 05/26/2024 Hunger Vital Sign Answer Date Recorded Within the past 12 months, y ou worried that your food would run out before you got the money to buy more. Often true 05/26/19 25 Within the past 12 months, t he food you bought just didn't last and you didn't have money to get more. Often true 05/26/2024 Transportation Answer Date Recorded In the past 12 months, has l ack of reliable transportation kept you from medical appointments, meetings, work or from getting things needed for daily living? Yes 05/26/2024 Housing Answer Date Recorded Housing Risk Low 1 05/26/2024 Housing Risk Medium Not on file 05/26/2024 Housing Risk High 1 05/26/2024 What is your living situation today? [facility] 05/26/2024 Comments No Sex and Gender Information Value Date Recorded Sex Assigned at Female 03/19/2024 3:52 PM EST Legal Sex Female 12:14 AM EDT Gender Identity Female 03/19/2024 3:52 PM EST Sexual Orientation Choose not to disclose 2023 3:52 PM EST documented as of this encounter Miscellaneous Notes * Telephone Encounter - Sabina Godoy - 02/27/2025 4:30 PM EST Pt called about getting levothyroxine and then wanted to know if another lab would pay for her blood work since she is so far away. I did suggest that she call [facility] and find out if [facility] or another lab would pay for Blood work. Pt then asked another question. I did not understand what she said. Pt hung up on me. documented in this encounter Plan of Treatment Not on file documented as of this encounter Visit Diagnoses Not on filedocumented in this encounter Care Teams Alterations Tailor Relationship Specialty Start Date End Date Cary Chun DO [facility] [place] [address] PCP - General Family Medicine 12/14/22 documented as of this encounter
--- OUTSIDE RECORDS SUMMARY | 2025-03-01 16:15 | XMS_ITS | Encounter Summary ---
Author Organization [facility] Address [address] [place] [address] Care Team Providers Care Manager General Name Role Phone Lay Kennedy DO, Diana Primary Care Provider + Encounter Details Date Type Department Care Team (Late st Contact Info) Description 03/27/2022 Transcribe Orders [facility] Physician Referral Services [address] [place] [address] Yvonne Liriano, CAYETANO [address] [place] [address] Fracture of orbit, closed, initial encounter (Primary Dx) Social History Tobacco Use Types Packs/Day Years Used Date Smoking Tobacco: Every Day Comments:: Comments Unknown Sex and Gender Information Value Date Recorded Sex Assigned at Female 03/19/2024 3:52 PM EST Legal Sex Female 12:14 AM EDT Gender Identity Female 03/19/2024 3:52 PM EST Sexual Orientation Choose not to disclose 2023 3:52 PM EST documented as of this encounter Plan of Treatment Not on file documented as of this encounter Visit Diagnoses Diagnosis Fracture of orbit, closed, initial encounter (HCC)- Primary documented in this encounter Care Teams Manager General Relationship Specialty Start Date End Date Cary Chun DO [address] [place] [address] PCP - General Family Medicine 12/14/22 documented as of this encounter
--- OUTSIDE RECORDS SUMMARY | 2025-03-01 16:16 | XMS_ITS | Clinical Summary ---
Author Organization [facility] Address [address] [place] [address] Care Team Providers Care Communication Analyst Name Role Phone Lay Kennedy DO, Diana Primary Care Provider + Allergies Active Allergy Reactions Criticality Noted Date Comments Sulfa (Sulfonamide Antibiotics) Rash Medications * This document contains information received from the source organization and may not represent a complete record from that organization. busPIRone (BUSPAR) 10 mg tablet Take 20 mg by mouth. 3 Active gabapentin (NEURONTIN) 600 mg tablet Take 300 mg by mouth 3 times a day. 4 Active thiamine HCl (VITAMIN B1) 100 mg tabletIndication s:Thiamine deficiency Take 1 tablet (100 mg total) by mouth once a day. 30 tablet 1 4 Active hydrOXYzine (VISTARIL) 25 mg capsule 4 Active traZODone (DESYREL) 100 mg tablet SMARTSI Tablet(s) By Mouth Every Night PRN 4 Active umeclidinium (Incruse Ellipta) 62.5 mcg/actuation blister with deviceIndication s:Pulmonary emphysema, unspecified emphysema type Inhale 62.5 mcg by mouth once a day. 30 each 2 4 Active traZODone (DESYREL) 150 mg tablet Take 150 mg by mouth nightly. 4 Active hydrocortisone 1% cream Apply to affected area 2 times daily 15 g 5 Active venlafaxine XR (EFFEXOR XR) 37.5 mg capsule SMARTSI Capsule(s) By Mouth Every Night 5 Active cariprazine (VRAYLAR) 1.5 mg capsule capsule Take 1.5 mg by mouth. 5 Active levothyroxine (SYNTHROID, LEVOTHROID) 175 mcg tabletIndication s:Hypothyroidism , unspecified type Take 1 tablet (175 mcg total) by mouth once a day. 90 tablet Active Ventolin HFA 90 mcg/actuation inhaler INHALE 2 PUFFS BY MOUTH EVERY 4 HOURS NEEDED FOR WHEEZING OR SHORTNESS OF BREATH. 18 g 5 Active Active Problems Problem Noted Date Diagnosed Date Noncompliance 08/29/2024 Assessment & Plan (08/29/2024 3:09 PM EDT): Multiple missed appointments and lack of follow up blood work completed. Discussed this with patient in clinic today and the expectations. Patient declines complex care management or further assistance. Homelessness unspecified 08/29/2024 Assessment & Plan (08/29/2024 3:09 PM EDT): Patient endorses homelessness, resources offered and patient declines at this time. Routine general medical exam ination at a health care facility 11/23/2023 Assessment & Plan (11/23/2023 2:36 PM EDT): Patient presenting for annual physical. Healthcare maintenance and age- appropriate cancer screening discussed, mammogram, and referral for colonoscopy placed. Pap done today in clinic. Healthy diet and regular exercise modifications discussed. Immunizations reviewed. Routine labs ordered along with STD screening. RTO in 6 months or earlier as needed. Alcohol dependence 09/21/2023 Assessment & Plan (08/29/2024 3:09 PM EDT): Currently consumes 5 nips per day. Has been to multiple detox facilities in the past year. Liver enzymes ordered, encourage to get labs done. Resources offered and patient declines. Orders: Comprehensive Metabolic Panel; Future CBC; Future Assessment & Plan (11/23/2023 2:36 PM EDT): Currently consumes 5 nips per day. Has been to multiple detox facilities in the past year. Liver enzymes ordered. Drug abuse and dependence 09/21/2023 Assessment & Plan (08/29/2024 3:09 PM EDT): Endorses crack, cocaine, and marijuana use. Has been to multiple detox facilities this past year. Psych component managed by [facility]. - patient declines additional resources at this time. - discussed [facility], patient declines at this time. Orders: Comprehensive Metabolic Panel; Future CBC; Future Assessment & Plan (11/23/2023 2:36 PM EDT): Endorses crack, cocaine, and marijuana use. Has been to multiple detox facilities this past year. Referral to complex care management placed. Will screen for Hep C, and HIV. Psych component managed by [facility]. Insomnia, uncontrolled 09/21/2023 Assessment & Plan (11/23/2023 2:36 PM EDT): Continue on trazodone, follows with psych Lung nodules 09/21/2023 Major depressive disorder, recurrent episode, mo derate 09/21/2023 Assessment & Plan (08/29/2024 3:09 PM EDT): Follows with [facility], states she has telehealth visits every 6 weeks. Patient is unsure what medications she is currently taking, will request records from [facility]. Generalized anxiety disorder 09/21/2023 Assessment & Plan (11/23/2023 2:36 PM EDT): Follows with [facility] for psych. Continue on Buspirone and Hydroxyzine PRN. PTSD (post-traumatic stress disorder) 09/21/2023 Pulmonary emphysema 07/27/2023 Assessment & Plan (11/23/2023 2:36 PM EDT): Followed with Dr. Law in the past with PFT last done 2015. Continue on Incruse and albuterol inhaler. Assessment & Plan (07/27/2023 4:35 PM EDT): Smokes 1 PPD. Incruse inhaler and proair refilled. Cannabis dependence 07/27/2023 Assessment & Plan (07/27/2023 4:28 PM EDT): Advised cessation Seasonal allergies 07/27/2023 Assessment & Plan (07/27/2023 4:33 PM EDT): Flare up during spring time. Claritin prescribed. Cigarette smoker 07/27/2023 Assessment & Plan (11/23/2023 2:36 PM EDT): Smokes 1PPD for 35 yrs. Continue on Incruse inhaler, ventolin inhaler prescribed. Encouraged cessation. Assessment & Plan (07/27/2023 4:35 PM EDT): Smokes 1 PPD. Advised cessation. Thiamine deficiency 01/24/2023 Assessment & Plan (11/23/2023 2:36 PM EDT): Chronic ETOH use, continue on thiamine supplement. Assessment & Plan (07/27/2023 4:29 PM EDT): Continue on thiamine supplement. Hypothyroidism 02/24/2013 Assessment & Plan (08/29/2024 3:09 PM EDT): Prior TSH was 38.7 on 11/23/23, unsure of actual Levothyroxine compliance, encourage patient to get repeat labs drawn, advised if not done by 11/2024 then can not safely provide further refills. Assessment & Plan (11/23/2023 2:36 PM EDT): TSH level elevated at 38, has been out of Levothyroxine medication, refill sent advised to get TSH redrawn in 6 wks. Assessment & Plan (07/27/2023 4:29 PM EDT): Last TSH within range. TSH ordered. Continue on Levothyroxine 100mcg. Resolved Problems Problem Noted Date Diagnosed Date Resolved Date Abdominal distension 09/21/2023 024 Alcohol abuse 09/21/2023 11/23/2023 Cocaine abuse without complication 09/21/2023 08/29/2024 CAP (community acquired pneumonia) 09/21/2023 11/23/2023 Chest pain 09/21/2023 11/23/2023 Esophageal reflux 09/21/2023 11/23/2023 Joint pain 09/21/2023 11/23/2023 Legal problem 09/21/2023 11/23/2023 Malnutrition 09/21/2023 11/23/2023 Orbital fracture 09/21/2023 11/23/2023 Rib pain 09/21/2023 11/23/2023 Sepsis 09/21/2023 11/23/2023 Cervicalgia 09/21/2023 11/23/2023 Fibromyalgia 09/21/2023 11/23/2023 Acute depression 09/21/2023 11/23/2023 Major depressive episode 09/21/2023 Severe episode of recurrent major depressive disorder, without psychotic features 07/27/2023 Assessment & Plan (07/27/2023 4:27 PM EDT): Follows with psychiatry at [facility]. Continue on Venlafaxine 75mg and hydroxyzine 50mg Chronic back pain 07/27/2023 11/23/2023 Assessment & Plan (07/27/2023 4:33 PM EDT): Pain upper back and right shoulder with crepitus with movement, suspect arthritis, no visible deformities, Xray cervical spine and right shoulder ordered. Continue on baclofen and gabapentin. Advised PT but patient declined at this time. Injury of face 08/10/2022 07/27/2023 Depression 01/06/2008 07/27/2023 Encounters Date Type Department Care Team Description 02/27/[address] Family Practice Department [address] [place] [phone] Cary Chun DO General Medical Concern 01/19/[address] Practice Department [address] [place] [phone] Michelle Thakkar NP 01/12/2025 Results Follow-Up [facility] [address] [place] [phone] Martinez Robertson RN 01/08/2025 5:20 AM EDT - 01/08/2025 9:47 AM EDT Emergency [facility] Emergency Department [address] [place] [phone] Patricia Silver MD Elbow laceration, right, initial encounter (Primary Dx) Discharge Disposition: Home or Self Care () 12/22/[address] Department [address] [place] [phone] Michelle Thakkar NP 12/22/[address] Practice Department [address] [place] [phone] ImmenhkathynCary V, DO Hypothyroidism, unspecified type from Last 3 Months Immunizations Immunization Administration Dates Next Due Covid-19 Monovalent Vaccine, Moderna, mRNA, PF 08/24/2020 Hepatitis B adult (ENGERIX-B ADULT) vaccine 1 mL IM 07/14/2010,02/08/2010,01/10/2010 Influenza trivalent, PF MDCK (FLUCELVAX) vaccine 0.5 mL IM (for age 6 mo and older) 04/18/2017 Influenza, Injectable, Madin Cassatt Canine Kidney, Preservative Free, Quadrivalent 04/18/2017 Influenza, Injectable, Quadr ivalent, Preservative Free 06/21/2022,05/13/2020,01/11/2016 Influenza, Trivalent, MDV, Injectable 01/21/2015 Influenza, Unspecified 06/21/2022,02/17/2013, Pneumococcal Polysaccharide Vaccine, 23 Valent 07/06/2015 Tetanus Toxoid, Reduced Diph theria Toxoid, and Acellular Pertussis Vaccine, Adsorbed 01/08/2025,04/13/2015 Family History Medical History Relation Name Comments Other Father Family history of Anxiety Other Mother Family History of diabetes mellitus Relation Name Status Comments Father Mother Social History Tobacco Use Types Packs/Day Years Used Date Smoking Tobacco: Every Day Cigarettes 1 36.9 Started: 1988 Passive Smoke Exposure: Past Smokeless Tobacco: Never Tobacco Cessation:Ready to Q uit: Not Asked; Counseling Given: Not Answered Comments:: Alcohol Use Standard Drinks/Week Comments Yes 21 (1 standard drink = 0.6 oz pu re alcohol) 10 nips/daily C Utilities Answer Date Recorded In the past [...] not to disclose 2023 3:52 PM EST Last Filed Vital Signs Vital Sign Reading Time Taken Comments Blood Pressure 138/89 01/08/2025 9:42 AM EDT Pulse 88 01/08/2025 9:42 AM EDT Temperature 36.7 C (98 F) 01/08/2025 9:42 AM EDT Respiratory Rate 16 01/08/2025 9:42 AM EDT Oxygen Saturation 94% 01/08/2025 9:42 AM EDT Inhaled Oxygen Concentration - - Weight 45.4 kg (100 lb) 10/14/2024 8:37 AM EDT Height 157.5 cm (5' 2 ) 10/14/2024 8:37 AM EDT Body Mass Index 18.29 10/14/2024 8:37 AM EDT Plan of Treatment Health Maintenance Due Date Last Done Comments Cologuard 1976 Colon Cancer Screening 1976 Colonoscopy 1976 FOBT / Fit Test 1976 Sigmoidoscopy 1976 Pneumococcal Vaccine: Pediat jasmin (0-5 Years) and At-Risk Patients (6-50 Years) (2 of 2 - PCV) 07/05/2016 07/06/2015 Mammogram 2016 Depression Screening and Follow-Up 04/09/2024 Influenza Vaccine (#1) 2024 , 06/21/2022, 05/13/2020, Additional history exists COVID-19 Vaccine (3 - 2024-2 6 season) 2024 09/21/2020, 08/24/2020 DTaP,Tdap,and Td Vaccines (2 - Td or Tdap) 04/13/2025 01/08/2025, 04/13/2015 Social Drivers of Health Katrina ual Screening 05/26/2025 05/26/2024 Pap Smear 11/22/2026 11/23/2023 Cervical Cancer Screening 11/22/2028 HPV and Pap Smear 11/22/2028 11/23/2023 Hepatitis B Vaccines Completed 07/14/2010, 02/08/2010, 01/10/2010 Alcohol/Substance Use Screening Completed Oral Health Screening Discontinued 05/26/2024 HIV Screening Completed 10/14/2024 Hepatitis C Screening Completed 10/14/2024, 007 Procedures * Due to [place] state law, this organization might not be sharing negative HIV tests. Procedure Name Priority Date/Time Associated Diagnosis Comments XR CHEST 2 VW STAT 01/08/2025 6:02 AM EDT XR ELBOW 3+ VW RIGHT STAT 01/08/2025 6:02 AM EDT ED LACERATION REPAIR Routine 01/08/2025 4:49 AM EDT HEPATITIS PANEL, ACUTE Routine 10/14/2024 4:01 PM EDT Drug abuse and dependence (HCC) THINPREP PAP WITH GC/CT, HPV SCREEN AND REFLEX HPV 16, 18/45 - [facility] ONLY Routine 11/23/2023 2:22 PM EDT Encounter for Papanicolaou smear of cervix from Last 3 Months or Most Recently Relevant to Health Maintenance Results * Due to [place] state law, this organization might not be sharing negative HIV tests. * XR Chest 2 vw. Standard (01/08/2025 6:02 AM EDT) Anatomical Region Laterality Modality Body Radiographic Brigid ging 01/08/2025 10:1 9 AM EDT Impressions 01/08/2025 10:21 AM EDT FINDINGS/IMPRESSION: The cardiomediastinal silhouettes appear normal. No consolidation, pneumothorax or effusion. No displaced right rib fracture. Degenerative changes in the spine. If this radiology report contains a blank impression section, it is an incomplete radiology report. Please contact the interpreting radiologist or applicable radiology division as soon as possible to obtain the completed interpretation. Workstation ID: [id number] Narrative 01/08/2025 10:21 AM EDT XR CHEST 2 VW INDICATION: fall, R rib pain COMPARISON: 2021 Resulting Agency Comment [id number] Procedure Note David Montenegro Jr., MD - 01/08/2025 XR CHEST 2 VW INDICATION: fall, R rib pain COMPARISON: 2021 IMPRESSION: FINDINGS/IMPRESSION: The cardiomediastinal silhouettes appear normal. No consolidation, pneumothorax or effusion. No displaced right rib fracture. Degenerative changes in the spine. If this radiology report contains a blank impression section, it is anincomplete radiology report. Please contact the interpreting radiologistor applicable radiology division as soon as possible to obtain thecompleted interpretation. Workstation ID: [id number] us Patricia Silver MD IMG XR PROCEDURES Final Result * XR Elbow 3+ vw Right (01/08/2025 6:02 AM EDT) Anatomical Region Laterality Modality Upper Extremities, Elbow Right Radiogr aphic Imaging 01/08/2025 6:21 AM EDT Impressions 01/08/2025 6:22 AM EDT FINDINGS/IMPRESSION: There is soft tissue swelling and edema dorsal to the olecranon. Superposed small foci of soft tissue air may represent air tracking through a soft tissue defect, post surgical change, or related to infection with gas-forming organism. Recommend correlation with clinical presentation. No radiographic evidence of acute fracture or dislocation. The joint spaces are preserved. No joint effusion. If this radiology report contains a blank impression section, it is an incomplete radiology report. Please contact the interpreting radiologist or applicable radiology division as soon as possible to obtain the completed interpretation. Workstation ID: [id number] A(n) Kingsley actionable finding has been communicated to the ordering or responsible provider via the [facility] system on 01/08/2025 6:22 AM. Receipt of this communication by the responsible provider will be documented in [facility] upon receiving acknowledgement if applicable, Message ID [id number]. Narrative 01/08/2025 6:22 AM EDT COMPARISON: There are no prior studies available for comparison at this time. Resulting Agency Comment [id number] Procedure Note Edenilson Ramirez MD - 01/08/2025 COMPARISON: There are no prior studies available for comparison at thistime. IMPRESSION: FINDINGS/IMPRESSION: There is soft tissue swelling and edema dorsal to theolecranon. Superposed small foci of soft tissue air may represent airtracking through a soft tissue defect, post surgical change, or related toinfection with gas-forming organism. Recommend correlation with clinicalpresentation. No radiographic evidence of acute fracture or dislocation. The jointspaces are preserved. No joint effusion. If this radiology report contains a blank impression section, it is anincomplete radiology report. Please contact the interpreting radiologistor applicable radiology division as soon as possible to obtain thecompleted interpretation. Workstation ID: [id number] A(n) Kingsley actionable finding has been communicated to the ordering orresponsible provider via the [facility] system on01/08/2025 6:22 AM. Receipt of this communication by the responsibleprovider will be documented in [facility] uponreceiving acknowledgement if applicable, Message ID [id number]. us Patricia Silver MD IMG XR PROCEDURES Final Result * Laceration Repair - ED (01/08/2025 4:49 AM EDT) Hair Keller MD - 01/08/2025 4:49 AM EDT Hair Wang MD 01/08/2025 7:30 AM Laceration Repair - ED Date/Time: 01/08/2025 4:49 AM Performed by: Hair Wang MD Authorized by: Patricia Silver MD Consent: Consent given by: Patient [place] protocol: An attending physician was present for the procedure OR the procedure was performed by an Advanced Practice Provider Anesthesia (see MAR for exact dosages): Anesthesia method: Local infiltration Local anesthetic: Lidocaine 1% w/o epi Laceration details: Location: Shoulder/arm Shoulder/arm location: R elbow Length (cm): 3 Depth (mm): 4 Repair type: Repair type: Simple Pre-procedure details: Preparation: Patient was prepped and draped in usual sterile fashion Exploration: Hemostasis achieved with: Direct pressure Wound exploration: wound explored through full range of motion and entire depth of wound probed and visualized Wound extent: areolar tissue violated Treatment: Area cleansed with: Saline Amount of cleaning: Standard Irrigation solution: Sterile saline Irrigation method: Syringe Visualized foreign bodies/material removed: yes Skin repair: Repair method: Sutures Suture size: 4-0 Suture material: Plain gut Suture technique: Simple interrupted Number of sutures: 3 Approximation: Approximation: Close Post-procedure details: Dressing: Open (no dressing) Patient tolerance of procedure: Tolerated well, no immediate complications us Patricia Silver MD IN CLINIC/BEDSIDE ORDERABLES F inal Result * Hepatitis panel, acute (10/14/2024 4:01 PM EDT) Hepatitis A IgM Antibody Interpretation Nonreactive Nonreactive 10/14/2024 7:39 PM EDT [facility] Hepatitis B Core IgM Antibody Interpretation Nonreactive Nonreactive 10/14/2024 7:39 PM EDT [facility] Hepatitis B Surface Antigen Interpretation Non-Reactive Non-Reactive 10/14/2024 7:39 PM EDT [facility] Hepatitis C Antibody Interpretation Nonreactive Nonreactive 10/14/2024 7:39 PM EDT [facility] Blood Structure of peripheral vein / Unknown Venipuncture / Unknown 10/14/2024 4:01 PM EDT 10/14/2024 4:07 PM EDT Michelle Thakkar NP LAB BLOOD ORDERABL ES Final Result [facility] [address] [place] [address], * Thinprep Pap with GC/CT, HPV Screen and Reflex to HPV 16, 18/45 - [facility] (11/23/2023 2:22 PM EDT) Pap Result Normal 12/07/2023 12:00 AM EDT [facility] Comment: PAP TEST INTERPRETATION Negative for intraepithelial lesion/malignancy. Specimen Adequacy: Satisfactory for evaluation. Endocervical/transformation zone component absent. Additional Findings: Anucleated squamous cells forming plaques (hyperkeratosis). [place]: TASHA Howell (ASCP) Electronic Signature: 12/07/2023 10:41 Ancillary Testing Test Name Results HPV High NEGATIVE Risk HPV NEGATIVE Genotyping 16 HPV NEGATIVE Genotyping 18 Chlamydia NEGATIVE trachomatis Neisseria NEGATIVE gonorrhoeae Clinical History LMP: YEARS AGO Source: Cervical/Endocervical Status: Routine/Screening Comments: Z12.4 Prior Cytology/Molecular History +------+------+------ 2023 +------+------+------+------ Thinprep PAP NILM w/stonecutter apprentice hand +------+------+------+------ HPV High NEGATI Risk VE +------+------+------+------ HPV NEGATI Genotyping VE 16 +------+------+------+------ HPV NEGATI Genotyping VE 18 +------+------+------+------ Chlamydia NEGATI trachomatis VE +------+------+------+------ Neisseria NEGATI gonorrhoeae VE Grossing and technical work performed at [facility] ([facility], [address] [place] [id number]; ; [id number]; CLIA #[id number]) All professional services performed by [facility] ([address] [place] [id number]; ; CLIA #[id number]) Testing for HPV was performed at [facility] (CLIA# [id number], [id number]) using the Timothy МАРИЯ 6800 system. The presence of HPV in the female genital tract is associated with a number of diseases, including cervical carcinoma. The HPV DNA high risk pool tests for HPV 31, 33, 35, 39, 45, 51, 52, 56, 58, 59, 66 and 68. Testing for HPV 16 and 18 genotypes has also been performed. A positive result indicates detection of nucleic acid sequences from one or more subtypes, whereas negative result indicates such sequences were not detected. Results should be correlated with other clinical and cytologic findings. Ancillary testing performed on cytology preservative specimen using Timothy Мария 6800 PCS assay at [facility], [address] [place] [address] (CLIA [id number], HP- [id number]) Gynecological cytology is a screening procedure for cervical cancer. Both false positive and false negative results may occur. Reliability of the procedure can be significantly improved by combining the results of satisfactory cytology samples obtained on a regular and repetitive basis with all relevant clinical information. Brushing Non-Blood Collection / Unknown 11/23/2023 2:22 PM EDT 11/26/2023 8:17 AM EDT Michelle Thakkar [facility] ([facility]) Final Result [facility] [address] [place] [address], from Last 3 Months or Most Recently Relevant to Health Maintenance Insurance [employer] Care Teams Communication Analyst Relationship Specialty Start Date End Date Cary Chun DO [address] [place] [phone] PCP - General Family Medicine 12/14/22
[2025-03-01 16:20] VITALS: BP 124/82; PULSE 81; RESP 16; TEMP 36.9; O2SAT 95
[2025-03-01 16:43] VITALS: BP 116/85; PULSE 75; RESP 16; TEMP 36.6; O2SAT 98
== END 2025-03-01 16:43 | disposition home or self-care (01) ==
PROVIDERS: Physician Assistant Medical; Emergency Provider Emergency Medicine; PCP Family Medicine
DX: L03.114 Cellulitis of left upper limb (principal); E03.9 Hypothyroidism, unspecified; Z79.899 Other long term (current) drug therapy
CPT/HCPCS: 36415; 80053; 84439; 84443; 85025; 85652; 86140; 99283